=== PATIENT | male | born 1995 | race African-American/Black ===

== ENCOUNTER 2025-09-03 15:11 | Emergency (ER) | payer OTHER ==
[~2025-09-03] VITALS: Ht 182.9 cm; Wt 72.7 kg
[2025-09-03 15:14] VITALS: TEMP 98.3
[2025-09-03] MEDS: ACETAMINOPHEN 500 MG TABLET PO ONE (18:49)
[2025-09-03] MEDS: KETOROLAC TROMETHAMINE 60 MG/2 ML VIAL IM ONE (18:49)
[2025-09-03 20:00] VITALS: BP 121/76; PULSE 68; RESP 18; O2SAT 99
[2025-09-03] MEDS ORDERED: IBUP-1554 PO (21:12)
[2025-09-03] MEDS ORDERED: ACET-66 PO (21:12)
[2025-09-03] MEDS ORDERED: METH-659 PO (21:12)
== END 2025-09-03 21:29 | disposition home or self-care (01) ==
LOC: EDBD 15:17 → EMS 15:17
DX: S16.1XXA Strain of muscle, fascia and tendon at neck level, initial encounter (principal); S33.9XXA Sprain of unspecified parts of lumbar spine and pelvis, initial encounter; M25.532 Pain in left wrist; V43.52XA Car driver injured in collision with other type car in traffic accident, initial encounter; Y93.89 Activity, other specified; Y92.410 Unspecified street and highway as the place of occurrence of the external cause; Y99.8 Other external cause status
CPT/HCPCS: 99284; 72040; 72100; 73110; 96372; J1885